=== PATIENT | female | born 1935 | race Caucasian/White ===

== ENCOUNTER 2024-01-24 10:15 | Outpatient (RCR) | payer MEDICARE, OTHER, SELFPAY | END 2024-04-01 08:37 | disposition home or self-care (01) | PROVIDERS: PCP Family Medicine; Visit Provider Family Medicine | DX: R26.9 Unspecified abnormalities of gait and mobility (principal); Z51.89 Encounter for other specified aftercare | CPT/HCPCS: 97110; 97161 ==

== ENCOUNTER 2024-03-18 10:30 | Emergency (ER) | payer MEDICARE, OTHER, SELFPAY ==
--- OUTSIDE RECORDS SUMMARY | 2024-03-18 10:32 | XMS_ITS | Continuity of Care Document ---
Author Organization [facility] Address [address] [place] [address] Phone Care Team Providers Care Personal Chef Name Role Phone Yesi Sharif Unavailable Unavailable Allergies, Adverse Reactions, Alerts Substance Reaction Status Criticality Sulfa (Sulfonamide Antibiotics) Active No Information Procedures Procedure Date Office/Outpatient Visit,[facility], [facility] 2013 Advance Directives Directive Yes / No Effective Date File Name No Information Encounters Encounter Description Practice Location Reason(s) For Visit Diagnoses Date Provider Providers Copied on Encounter [facility], [address], [place], [place], [id number], [place] tel:[phone] [facility] No Information 6 Kyle Key. [facility], [address] [place] [address] [address], [place], [id number] , [place]. tel:[phone] Office/Outpat ient Visit,[facility], [facility], [address], [place], [address], [place] tel:[phone] (chief complaint) No Information 4 Kyle Key. [facility], [address] [place] [address] [address], [place], [place], [id number] , [place]. tel:[phone] Referring Provider: June Humphrey, [employer] [address], [place], [address]. tel:[phone] Family History Family Member Type Diagnosis Age At Onset Problem (finding) Payers Payer name Insurance type Covered alliance party ID Authoriza tion(s) No Information Social History Type Description Quantity Date Captured Comments Sex Female Smoking Status No Information Chief Complaint And Reason For Visit No Information Reason For Referral Reason For Referral No Information History Of Present Illness Encounter Date Complaint History Of Prese nt Illness Back Pain Functional Status Date Functional Assessmen t No Information Instructions Date Instruction Additional Infor mation No Information Assessments Type Assessment Date No Information Patient Care Teams Name Effective Dates (start - stop) Status Members No Information
--- OUTSIDE RECORDS SUMMARY | 2024-03-18 10:32 | XMS_ITS | Clinical Summary ---
Author Organization [facility] Address [place], [place] [address] Care Team Providers Care Natural Sciences Department Chair Name Role Phone Alec Rivera Unavailable JimJanae duffy Alex Unavailable [phone] Marlon Ferreira MD Primary Care Provider Allergies Active Allergy Reactions Criticality Noted Date Comments Tetanus And Diphtheria Toxoi ds, Adsorbed, Adult Medications MULTIVITAMIN TAB 0 8 Active GLUCOSAMINE-CHOND ROITIN 500 MG-400 MG CAP 1500 mg daily 0 8 Active CALCIUM 500 WITH VITAMIN D 500 MG (1,250 MG)-200 UNIT TAB 2 daily 0 8 Active coenzyme q10 (CO Q-10) 100 mg cap Take 1 capsule by mouth once daily. 0 4 Active Accu-Chek Guide test strips stripIndications: Pre-diabetes TEST 1-2 TIMES PER WEEK 200 Each 3 2 Active Accu-Chek Softclix LancetsIndication s:Pre-diabetes TEST 1-2 TIMES PER WEEK. CHECK WITH PATIENT BEFORE FILLING, NEVER FILLED BEFORE 200 Each 3 3 Active lactulose (Constulose) 10 gram/15 mL solutionIndicatio ns:Chronic constipation TAKE 15ML BY MOUTH ONCE DAILY 1350 mL 2 4 Active Active Problems Problem Noted Date Diagnosed Date Essential hypertension 11/30/2023 Depression, recurrent 04/13/2023 Venous stasis dermatitis of left lower extremity 08/30/2022 Venous insufficiency 08/30/2022 MVP (mitral valve prolapse) 04/02/2018 Pre-diabetes 01/30/2015 Osteopenia 01/05/2010 Sensorineural hearing loss, bilateral 01/04/2008 Subjective tinnitus 01/04/2008 Other and unspecified hyperlipidemia 10/10/2006 Resolved Problems Problem Noted Date Diagnosed Date Resolved Date Elevated blood pressure read ing without diagnosis of hypertension 05/03/2021 11/30/2023 Mitral valve insufficiency 04/02/2018 0 05/01/2020 Personal history of colonic polyps 11/18/2008 05/03/2021 Overview (05/27/2014): Colonoscopy 11/2008 normal repeat in 5 years Colonoscopy 05/2014 diverticulosis repeat in 5 years Encounters Date Type Department Care Team Description 03/18/2024 Nurse Triage [facility] [address] [place] [address] Marlon Ferreira MD Knee Injury from Last 3 Months Immunizations Name Administration Dates Next Due Influenza, IIV3 (Age >=3 years) 11/24/2003,12/28,11/29/2001 Td (Age >=7 Years) 01/03/1995 Family History Medical History Relation Name Comments Kidney failure Brother 4 Diabetes Brother 5 several Stroke Brother 6 also had diabet es Diabetes Father Stroke Maternal Aunt Diabetes Sister 5 several Cancer Sister 6 melanoma, age 8 9, living Relation Name Status Comments Brother 1 Alive Brother 2 Alive Brother 3 Alive Brother 4 Alive Brother 5 Brother 6 Father Maternal Aunt Mother Sister 1 Alive Sister 2 Alive Sister 3 Alive Sister 4 Alive Sister 5 Sister 6 Social History Tobacco Use Types Packs/Day Years Used Date Smoking Tobacco: Never Smokeless Tobacco: Never Tobacco Cessation:Counseling Given: No Alcohol Use Standard Drinks/Week Comments Yes 0 (1 standard drink = 0.6 oz pur e alcohol) occasional wine PHQ-2 Answer Date Recorded PHQ-2 TOTAL SCORE 0 11/02/2023 Social Connections Answer Date Recorded Do you often feel lonely or isolated from those around you? 0 10/12/2023 Financial Resource Strain Answer Date R ecorded Difficulty of Paying Living Expenses 3 10/12/2023 Difficulty of Paying Living Expenses Not on file 10/12/2023 Food Insecurity Answer Date Recorded Do you worry your food will run out before you are able to buy more? 1 10/12/2023 Transportation Needs Answer Date Record ed Does lack of transportation keep you from medica l appointments? 1 10/12/2023 Does lack of transportation keep you from work, meetings or getting things that you need? 1 10/12/2023 Housing Stability Answer Date Recorded What is your housing situation today? 1 10/12/2023 Utilities Answer Date Recorded Do you have trouble paying f or utilities (for example, heat, electricity, water, phone)? 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7 kg (136 lb) 11/30/2023 9:20 AM CDT Height 146.1 cm (4' 9.52) 11/02/2023 8:58 AM CD T Body Mass Index 28.9 11/02/2023 8:58 AM CDT Plan of Treatment Health Maintenance Due Date Last Done Comments Pneumococcal series for age 50+ (1 of 2 - PCV) 01/06/1955 Zoster (shingles) series for age 50+ (1 of 2) 01/06/1986 RSV vaccine for adults or (1 - 1-dose 75+ series) 01/06/2011 COVID-19 vaccine series ( - season) 2023 Influenza for age 65+ 10/15/2023 11/24/2003 , 12/28/2002, 11/29/2001 BMI (ht and wt on same day) for age 18+ 11/01/2024 11/02/2023, 10/03/2023, 08/30/2022, Additional history exists Depression screening for age 12+ 11/01/2024 11/02/2023, 10/15/2023, 10/12/2023, Additional history exists Medicare Wellness for age 65+ 11/02/2024, 08/30/2022, 05/03/2021, Additional history exists DEXA/DXA scan for age 65+ Completed 2022, 03/06/2017, 01/27/2015, Additional history exists Procedures Procedure Name Priority Date/Time Associated Diagnosis Comments XR DXA BONE DENSITY 2 SITES AXIAL Routine 09/05/2022 1:58 PM CDT Post-menopausal from Last 3 Months or Most Recently Relevant to Health Maintenance Results * (ABNORMAL) XR DXA BONE DENSITY 2 SITES AXIAL (09/05/2022 1:58 PM CDT) Anatomical Region Laterality Modality Spine, HIPS, HIPL, HIPR Other Impressions 09/06/2022 2:51 PM CDT Osteopenia. RECOMMENDATIONS: The National Osteoporosis Foundation recommends pharmacologic treatment for patients with T-scores of -2.5 or less, patients with prior history of fragility fractures, or patients with 10-year probability of greater than 3% at hips or greater than 20% of suffering major osteoporotic fractures. Recommend continued optimization of calcium and vitamin D intake through dietary means and/or supplementation and regular exercise. Consider pharmacologic therapy for osteopenia with increased fracture risk. Follow-up bone density reading in 2 years if therapy initiated to assess therapeutic efficacy. Marisa Tarango PA-C [facility] 09/06/2022 Narrative 09/06/2022 2:51 PM CDT For Patients: Results are automatically released to your [employer]ago [employer] team[employer] across global offices ([employer]) account once available, in compliance with federal regulations. This means that you may see your results before your provider has had a chance to review them. Please allow 2-3 business days for your provider to comment on the results. XR DXA Bone Mineral Density (BMD) EXAM LOCATION: [address] [address] PATIENT NAME: Elsie Bautista DATE OF : 1935 EXAM DATE: 09/05/2022 REQUESTING PROVIDER: Marlon Ferreira MD GENDER AT : female HEIGHT: 4' 9.48 (08/30/2022) WEIGHT: 131 lb 9.6 oz (08/30/2022) MENOPAUSAL STATUS: Postmenopausal RACE/ETHNICITY: White RISK FACTORS: Height Loss (2 inches or more) and White Race CURRENT MEDICATION FOR BONE LOSS: NONE INDICATION: Follow-up of existing osteopenia and Post-Menopause COMPARISON DATE(S): 2018 DXA scans are compared to prior studies for a patient only when the two (or more) studies were performed on the same scanner. It is not possible to compare data generated on one scanner to data from another because there are not standards in DXA equipment. This applies even if the two scanners are made by the same line construction superintendent. PROCEDURE: Dual-energy x-ray absorptiometry performed with routine technique. Reporting is completed in the form of a T-score. The T-score represents the standard deviation from peak bone mass based on young healthy adult. A Z-score is used for diagnosis in premenopausal women, and for men under the age of 50. FINDINGS: RESULT LUMBAR SPINE L1 - L2 BMD: 1.006 g/cm2 T-Score: - 1.4 Z-Score: + 0.7 Change from prior in 2018: Increase 0.3%. RESULTS FEMUR Left femoral neck BMD: 0.821 g/cm2 T-Score: - 1.6 Z-Score: + 1.0 Change from prior in 2018: Decrease 4.0%. Right femoral neck BMD: 0.826 g/cm2 T-Score: - 1.5 Z-Score: + 1.0 Change from prior in 2018: Decrease 2.4%. Left hip BMD: 0.964 g/cm2 T-Score: - 0.3 Z-Score: + 2.1 Change from prior in 2018: Decrease 3.0%. Right hip BMD: 0.931 g/cm2 T-Score: - 0.6 Z-Score: + 1.9 Change from prior in 2018: Decrease 4.8%. WHO criteria: Normal: T-score at or above -1 SD Osteopenia: T-score between -1.1 and -2.4 SD Osteoporosis: T-score at or below -2.5 SD FRAX RISK CALCULATION (USED FOR OSTEOPENIA ONLY): 10-year probability of major osteoporotic fracture: 12.9%. 10-year probability of hip fracture: 3.7%. Marlon Ferreira MD DEXA Final Result from Last 3 Months or Most Recently Relevant to Health Maintenance Insurance MEDICARE PB ONLY HP MEDICARE PART A HB ONLY Care Teams Natural Sciences Department Chair Relationship Specialty Start Date End Date Marlon Ferreira MD [address] [place] [address] PCP - General Family Practice 04/12/18 Alec Rivera [address] [place] [address] Ophthalmology 01/15/13 Janae Fernandez AuD [address] [place] [address] Audiology 03/07/16
[2024-03-18 10:39] VITALS: BP 191/82; PULSE 63; RESP 18; TEMP 35.8; O2SAT 96; BMI 28.7
--- NOTE | 2024-03-18 10:48 | CRLHL7_ITS ---
For Patients: As a result of the Cures Act, medical imaging exams and procedure reports are released immediately into your electronic medical record. You may view this report before your referring provider. If you have questions, please contact your health care provider. Indication: HEARD POP IN LEFT KNEE WHILE CLIMBING STAIRS, PAIN Technique: Left knee 3 views Comparison: None Findings: Chronic distal quadriceps tendinosis. No large joint effusion. No fracture. Small densities associated with the menisci. Mild narrowing and spurring at the patellofemoral compartment laterally. Impression: Mild degenerative changes. No synovitis or fracture. Mild chondrocalcinosis. Dictated by Manuel Fitzgerald MD @ 03/18/2024 11:18:53 AM (Electronically Signed)
--- NOTE | 2024-03-18 11:14 | ED.LOWEXIN ---
HPI - Extremity Injury (Lower) General Date Seen: 03/18/24 Chief Complaint: Extremity Pain/Injury, Lower Stated Complaint: knee injury Time Seen by Provider: 03/18/24 10:32 Source: patient and family Mode of arrival: ambulatory Limitations: no limitations History of Present Illness HPI Narrative: Patient is a very nice 89-year-old female who was walking her dog yesterday, she put her foot up in felt something snap in her left knee, she is able to hobble up to the house, less painful for her when she puts weight on her toes than her actual heel. Denies any numbness tingling or weakness, she has a little bit of swelling, I thought initially that she had fallen and injured her knee, but she tells me that the excoriations are just from scratching she presents with her daughter. complaint: knee injury Onset (ago): hour(s) Injury: Left: knee Type of Injury: hyperflexion Place: home Severity: moderate Exacerbating factors: weight bearing Context: walking Associated symptoms: snap/pop sensation, swelling and able to partially bear weight Other symptoms: none Related Data Home Medications ?Medication ?Instructions ?Recorded ?Confirmed lactulose 10 gram/15 mL oral 15 ml PO DAILY 03/18/24 03/18/24 solution Allergies Allergy/AdvReac Type Severity Reaction Status Date / Time Sulfa (Sulfonamide Allergy Unknown Verified 03/18/24 10:44 Antibiotics) Review of Systems Status of ROS: Reports: 6 or more systems reviewed and unremarkable except as noted in History and below PFSH PFSH Social History Smoking Status: Never smoker How often do you have a drink containing alcohol: never AUDIT-C Alcohol total score: 0 Non-prescribed substance use: denies use Exam Narrative: Exam Narrative: On examination clinically she does not want a fusion of her left knee, she is able to flex it for 100? and extended fully for me, there is no tenderness along the joint line her tenderness is mostly popliteal in nature, I cannot feel any masses, or any suggestion of a Casiano cyst or popliteal pulse, DP and posterior tibial are normal, her hips have painless range of motion, and her patella seemingly tracks normally. Const: Vital Signs, click to edit/add: Vital Signs - 24 hr 03/18/24 10:39 Temperature 96.4 F L Pulse Rate [Pulse Oximeter] 63 Respiratory Rate 18 Blood Pressure [Ri ght Upper Arm] 191/82 H Pulse Oximetry 96 Oxygen Delivery Me thod Room Air Documenting provider has reviewed patient's vital signs: yes Course Vital Signs Vital signs: Initial Vital Signs Temperature 96.4 F L 03/18/24 10:39 Temperature Source Temporal Artery Scan 03/18/24 10:39 Pulse Rate 63 03/18/24 10:39 Respiratory Rate 18 03/18/24 10:39 Blood Pressure 191/82 H 03/18/24 10:39 Blood Pressure Mean 118 H 03/18/24 10:39 Blood Pressure Position Supine 03/18/24 10:39 Pulse Oximetry 96 03/18/24 10:39 Oxygen Delivery Method Room Air 03/18/24 10:39 Vital Signs Temperature 96.4 F L 03/18/24 10:39 Pulse Rate 63 03/18/24 10:39 Respiratory Rate 18 03/18/24 10:39 Blood Pressure 191/82 H 03/18/24 10:39 Pulse Oximetry 96 03/18/24 10:39 Oxygen Delivery Method Room Air 03/18/24 10:39 Temperature 96.4 F L 03/18/24 10:39 Pulse Rate 63 03/18/24 10:39 Respiratory Rate 18 03/18/24 10:39 Blood Pressure 191/82 H 03/18/24 10:39 Pulse Oximetry 96 03/18/24 10:39 Oxygen Delivery Method Room Air 03/18/24 10:39 MDM - Extremity Injury (Lower) Differential Diagnosis Differential diagnosis: Likely ankle sprain and strain, acute internal derangement of knee, fracture of femur and fracture of hip Medical Records Attestation: I reviewed the patient's medical records. Imaging Data Left knee x-ray: Attestation: I have reviewed the pertinent imaging results. My impression: Do not see a huge abnormality with the knee, mild effusion is noted. No fracture, Radiologist's impression: [place] [address] Diagnostic Imaging Report Patient: Elsie Bautista MR#: [id number] : 1935 Acct:[id number] Loc: ED Service Date: 03/18/[address]: Ordering Physician: Seper,Rafael S M.D. Date of Service: 03/18/24 Procedure(s): XR knee LT 3V Accession Number(s): [id number] cc: Marlon Ferreira M.D.; Rafael Mosley M.D.~ For Patients: As a result of the Cures Act, medical imaging exams and procedure reports are released immediately into your electronic medical record. You may view this report before your referring provider. If you have questions, please contact your health care provider. Indication: HEARD POP IN LEFT KNEE WHILE CLIMBING STAIRS, PAIN Technique: Left knee 3 views Comparison: None Findings: Chronic distal quadriceps tendinosis. No large joint effusion. No fracture. Small densities associated with the menisci. Mild narrowing and spurring at the patellofemoral compartment laterally. Impression: Mild degenerative changes. No synovitis or fracture. Mild chondrocalcinosis. Dictated by Manuel Fitzgerald MD @ 03/18/2024 11:18:53 AM Discharge Plan Discharge Clinical Impression: Acute internal derangement of knee Patient Disposition: Home w/ Parent or Adult Condition: Stable Instructions: ACL Injury (ED) Additional Instructions: Home, rest, Manan wrap on the left knee, recommend ice, Tylenol for the discomfort, follow-up with Orthopedics, return if increasing swelling issues, make sure you take the wrap off every once in a while, as if it is too tight and may cause development of blood clot. Crutches are fine Activity Level: Light activity Prescriptions: No Action lactulose 10 gram/15 mL solution 15 ml PO DAILY Follow Up/Referrals: Marlon Ferreira MD [Primary Care Provider] - Stand Alone Forms: [employer] Info Instructions
[2024-03-18 11:15] VITALS: BP 162/73
--- OUTSIDE RECORDS SUMMARY | 2024-03-18 11:19 | XMS_ITS | Continuity of Care Document ---
Author Organization [facility] Address [address] [place] [address] Phone Care Team Providers Care Supervisor Safety Deposit Name Role Phone Yesi Sharif Unavailable Unavailable Allergies, Adverse Reactions, Alerts Substance Reaction Status Criticality Sulfa (Sulfonamide Antibiotics) Active No Information Procedures Procedure Date Office/Outpatient Visit,[facility], [facility] 2013 Advance Directives Directive Yes / No Effective Date File Name No Information Encounters Encounter Description Practice Location Reason(s) For Visit Diagnoses Date Provider Providers Copied on Encounter [facility], [address], [place], [place], [id number], [place] tel:[phone] [facility] No Information 6 Kyle Key. [facility], [address] [place] [address] [address], [place], [id number] , [place]. tel:[phone] Office/Outpat ient Visit,[facility], [facility], [address], [place], [address], [place] tel:[phone] (chief complaint) No Information 4 Kyle Key. [facility], [address] [place] [address] [address], [place], [place], [id number] , [place]. tel:[phone] Referring Provider: June Humphrey, [employer] [address], [place], [address]. tel:[phone] Family History Family Member Type Diagnosis Age At Onset Problem (finding) Payers Payer name Insurance type Covered republican ID Authoriza tion(s) No Information Social History [...]
--- OUTSIDE RECORDS SUMMARY | 2024-03-18 11:20 | XMS_ITS | Clinical Summary ---
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 Marisa Tarango PA-C [facility] 09/06/2022 Narrative 09/06/2022 2:51 PM CDT For Patients: Results are automatically released to your [employer] ([employer]) account once available, in compliance with federal regulations. This means that you may see your results before your provider has had a chance to review them. Please allow 2-3 business days for your provider to comment on the results. XR DXA Bone Mineral Density (BMD) EXAM LOCATION: [address] [address] PATIENT NAME: Elsie Bautista DATE OF : [...] two scanners are made by the same auto garage mechanic. PROCEDURE: Dual-energy x-ray absorptiometry performed with routine [...] MEDICARE PART A HB ONLY Care Teams Procurement Professional Relationship Specialty Start Date End Date Marlon Ferreira MD [address] [place] [address] PCP - General Family Practice 04/12/18 Alec Rivera [address] [place] [address] Ophthalmology 01/15/13 Janae Fernandez AuD [address] [place] [address] Audiology 03/07/16
[2024-03-18 11:30] VITALS: BP 155/84
== END 2024-03-18 11:56 | disposition home or self-care (01) ==
PROVIDERS: Emergency Provider Family Medicine; PCP Family Medicine
DX: M23.92 Unspecified internal derangement of left knee (principal)
CPT/HCPCS: 73562; 99283

== ENCOUNTER 2024-03-26 15:07 | Outpatient (CLI) | payer MEDICARE, OTHER, SELFPAY | END 2024-03-26 15:08 | disposition home or self-care (01) | LOC: MRI 15:07 | PROVIDERS: PCP Family Medicine; Visit Provider Physician Assistant Surgical | DX: M25.562 Pain in left knee (principal); S83.232A Complex tear of medial meniscus, current injury, left knee, initial encounter; S83.282A Other tear of lateral meniscus, current injury, left knee, initial encounter; M94.262 Chondromalacia, left knee; S83.522A Sprain of posterior cruciate ligament of left knee, initial encounter; M25.462 Effusion, left knee; M23.92 Unspecified internal derangement of left knee; S89.92XA Unspecified injury of left lower leg, initial encounter | CPT/HCPCS: 73721 ==

== ENCOUNTER 2024-07-18 15:00 | Outpatient (RCR) | payer MEDICARE, OTHER, SELFPAY ==
--- NOTE | 2024-04-16 15:22 | PT.OPEX ---
PT [place] [facility] Eval PT [facility] Out[facility] Eval Start: 04/01/24 14:51 Freq: Status: Active Protocol: Document 04/16/24 07:21 MLS (Rec: 04/16/24 15:20 MLS [id number]) E-signed By Elina Plummer DPT Physical Therapy Outpatient Evaluation Insurance Information Recert Due Date 07/14/24 Insurance Name Medicare B Medical Diagnosis M23.92 unspecified internal derangement left knee S89.92XA unspecified injury of left lower leg Treating Diagnosis Left knee strengthening Imaging Report Information From chart: Left knee noncontrast MRI obtained [facility] dated 03/26/2024. 1. Complex high-grade tear involving far posterior horn and posterior root medial meniscus without displaced flap fragment or parameniscal cyst. There is also a 0.9 x 1. 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 2. Moderate changes of subchondral edema signal weight-bearing surface medial and lateral femoral condyle. Mild marrow edema signal within the tibial eminence 3. Residua chronic sprain injury and some associated thickening PCL 4. Far posterior and posterior insertion lateral meniscus pre defined tearing and thickening. There is no root avulsion injury. No displaced fragment or parameniscal cyst. 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 5. Large knee joint effusion Referring MD Ramiro Pitt PA-C Subjective Subjective Patient is a 89 year old female who presents to physical therapy with signs and symptoms consistent with left knee pain with medial and lateral meniscus tears. She states that she was supposed to have surgery on 04/08/24 but she cancelled it. She reports that she also hurt her right hip as well, prior to her knee. She states that on Mar 17, she was walking her dog and went to step and heard her left knee snap. She states that she went to the ER the next day and they did xrays. She states that at first she was told she tore her ACL, but then had a MRI and found out she tore her meniscus. She states that she is going up and down the stairs one at a time, just depending on what is hurting more. Aggravating factors include: stairs, walking, standing, exercising, and ADLs . Alleviating factors include : nothing. Significant past medical history includes nothing significant. Patient would like to achieve less pain and return to ADLs through physical therapy sessions. Pain Comments Today: 5/10 on a 0-10 pain scale with 10 = extreme pain At its worst: 10/10 At its best: 5/10 Current Work Status Retired Precautions Therapy Limitations/Systems Review Not Limited Objective Other/Pertinent Objective GAIT/FUNCTIONAL MOBILITY Single leg stance: no increase in pain Squat: with pain KNEE ROM Extension/Flexion: 0-115 L, 0- 120 R HIP ROM Grossly tested WNL, tightness and tenderness to R ITB LLE MMT: Hip flexion: R 4-/5 L 4-/5 Hip abduction: R 4-/5 L 4-/5 Hip extension: R 4/5 L 4/5 Knee flexion: R 4+/5 L 4+/5 Knee extension: R 4+/5 L 4+/5 SPECIAL TEST -Anterior drawer: neg -Ruslan test: 1A -Posterior Drawer: neg -Valgus Test: stable 0 and 30 -Varus Test: stable 0 and 30 -Cam test: positive medial joint line -Thessaly test: positive medial joint line -Garcia Compression: neg -Hip quadrant test: neg -CHRISTA test: neg -FADIR test: neg -Trochanteric Bursitis Test: neg JOINT MOBILITY/PALPATION Tender to medial joint line, and medial tibial plateau, posterior joint line TX: Access Code: [email or web address] URL: [email or web address] Date: 04/16/2024 Prepared by: Elina Plummer Exercises - Supine Quadricep Sets - 1 x daily - 7 x weekly - 3 sets - 10 reps - Gluteal Sets - 1 x daily - 7 x weekly - 3 sets - 10 reps - Active Straight Leg Raise with Quad Set - 1 x daily - 7 x weekly - 3 sets - 10 reps - Supine Heel Slide - 1 x daily - 7 x weekly - 3 sets - 10 reps - Supine Hip Abduction AROM - 1 x daily - 7 x weekly - 3 sets - 10 reps - Heel Raises with Counter Support - 1 x daily - 7 x weekly - 3 sets - 10 reps Assessment Assessment/Impression Patient is a 89 year old female who presents to physical therapy with signs and symptoms consistent with left knee pain with medial and lateral meniscus tear. She states that on 2/24/25 she had a partial left knee medial and lateral meniscectomy. Patient also has notable objective findings including limited ROM, tenderness to palpation, and decreased strength which are also likely contributing to the problem. Patient is a good candidate for skilled therapy to target deficits described above. Skilled PT intervention is necessary for use of therapeutic exercise manual therapy, neuromuscular re- education, gait training, and therapeutic activity. Functional impairments include difficulty with: standing, walking, exercising and ADLs. See appropriate sections of PT eval for complete list of goals and POC. D/C plan and criteria is for pt to achieve the goals as listed below or until max rehab potential is met. Pt was agreeable with plan of care and goals established. Primary Functional Limitations standing exercising walking ADLS Plan of Care Rehabilitation Potential Good Physical Therapy Goals Within 10-12 weeks: 1.Pt will demonstrate independence in performance of home exercise program with the use of video and/or handouts in order to optimize functional mobility and reduce risk for re-injury. 2.Pt will demonstrate consistent HEP compliance to ensure progress in reaching established goals during course of care. 3.Patient will be able to drive for up to one hour without pain. 4.Patient will report pain levels <2/10 with all activities in order to improve functional mobility at home, work and during functional leisure activities. 5.Patient is able to sleep without waking more than one time due to pain in a 6-8 hour time frame. 6.Patient will be able to walk up to one mile without pain. 7.Pt will be able to ascend/ descend 1 flight of stairs in order to perform ADLs pain free. Coordination/Communication With Referral Source Treatment Plan/Direct Interventions Gait Training,Joint Mobilization,Manual Therapy, Neuromuscular Re-ed, Therapeutic Activities, Therapeutic Exercises Patient Will Be Discharged From Therapy Independently Progressing Evaluation Billing Untimed Code Treatment Minutes 30 Complexity Low Certification Information Provider Signature Required Yes Provider Signature Shows Agreement With POC & Medical Necessity Physician NPI Number Write NPI# Here Physician Comment/Change : Physician Signature & Date Requested Please Sign/Date Here
== END 2024-08-14 12:18 | disposition home or self-care (01) ==
PROVIDERS: PCP Family Medicine; Visit Provider Physician Assistant Surgical
DX: M23.92 Unspecified internal derangement of left knee (principal); S89.92XD Unspecified injury of left lower leg, subsequent encounter; Z51.89 Encounter for other specified aftercare
CPT/HCPCS: 97110; 97161